=== PATIENT | male | born 1950 | race Caucasian/White ===

== ENCOUNTER → 2018-05-07 | Outpatient (CLI) | payer MEDICARE, OTHER ==
[~2018-05-07] VITALS: Ht 170.2 cm; Wt 100.7 kg
[~2018-05-07] MED LIST: CATHETER FLUSH 10 ML SYR IV PRN; REGADENOSON 0.4 MG/5 ML SYR (LEXISCAN) IV ONE
[2018-05-07 09:23] VITALS: BP 143/80
--- NOTE | 2018-05-07 14:32 | STRESS TEST ---
DATE OF SERVICE: 05/07/2018 RESTING AND POST REGADENOSON TECHNETIUM-99M TETROFOSMIN SPECT CT IMAGING ORDERING PHYSICIAN: Carolyn Galo APRN. PRIMARY CARE PHYSICIAN: Dr. Villar. CLINICAL DIAGNOSES: Premature ventricular contractions, hypertension and tobacco use. Baseline images were carried out after injection of 10.17 mCi of technetium-99m Tetrofosmin. This was followed by 0.4 of mg Regadenoson and 30.4 mCi of technetium-99m Tetrofosmin for stress imaging. The electrocardiogram showed sinus rhythm at baseline. Isolated premature ventricular contractions were seen during the study. The electrocardiogram did not change significantly with the Regadenoson infusion. Review of images at rest and following stress does not indicate any significant perfusion defects consistent with significant myocardial ischemia or infarction. Gated images show normal global left ventricular systolic function and normal regional wall motion. Left ventricular ejection fraction is calculated to be 62%. Left ventricular end diastolic volume is 70 mL. TID is absent (1.08). CONCLUSIONS: 1. No evidence of any significant myocardial ischemia or infarction on this study. 2. Normal regional wall motion. 3. Normal global left ventricular systolic function with a calculated ejection fraction of 62%. Job ID: [id number] DocumentID: [id number] Dictated Date: 05/07/2018 14:19:36 Investment Recovery Technician Date: 05/07/2018 14:31:49 Dictated By: ADONIS ZAYAS MD, MA, FACP, FACC,
== END ==
LOC: CARD 07:44
PROVIDERS: ATTEND Nurse Practitioner Family
DX: I49.3 Ventricular premature depolarization (principal); I10 Essential (primary) hypertension; G47.39 Other sleep apnea; Z72.0 Tobacco use
CPT/HCPCS: 78452; 93017

== ENCOUNTER 2020-11-27 23:58 | Day surgery (SDC) | payer MEDICARE, OTHER ==
[~2020-11-27] VITALS: Ht 170 cm; Wt 98.0 kg
[2020-11-28] VITALS (25 sets, daily range): BP systolic 91–228; BP diastolic 60–135
[2020-11-28 01:59] LABS: BASOPHILS # (AUTO) 0.1 10^3/uL (0.0-0.1); BASOPHILS % (AUTO) 0 % (0-10); EOSINOPHILS % (AUTO) 0 % (0-10); HEMATOCRIT 56 % (40-54); LYMPHOCYTES # (AUTO) 0.9 10^3/uL (1.0-4.0); LYMPHOCYTES % (AUTO) 6 % (12-44); MEAN CORPUSCULAR HEMOGLOBIN 31 pg (25-34); MEAN CORPUSCULAR HGB CONC 34 g/dL (32-36); MEAN CORPUSCULAR VOLUME 92 fL (80-99); MEAN PLATELET VOLUME 9.1 fL (9.0-12.2); MONOCYTES # (AUTO) 1.3 10^3/uL (0.0-1.0); MONOCYTES % (AUTO) 8 % (0-12); NEUTROPHILS # (AUTO) 13.4 10^3/uL (1.8-7.8); NEUTROPHILS % (AUTO) 85 % (42-75); PLATELET COUNT 210 10^3/uL (130-400); WHITE BLOOD COUNT 15.7 10^3/uL (4.3-11.0)
[2020-11-28 02:04] LABS: BILIRUBIN,URINE NEGATIVE (NEGATIVE); CLARITY,URINE CLEAR; COLOR,URINE YELLOW; GLUCOSE, URINE (UA) NEGATIVE (NEGATIVE); KETONES,URINE 2+ (NEGATIVE); LEUKOCYTE ESTERASE ,URINE NEGATIVE (NEGATIVE); NITRITE,URINE NEGATIVE (NEGATIVE); PROTEIN,URINE NEGATIVE (NEGATIVE)
[2020-11-28] MEDS ORDERED: ONDANSETRON 4 MG/2 ML (SDV) Z0FRAN ONE ×3 (02:07→10:53)
[2020-11-28 02:11] LABS: BACTERIA,URINE NEGATIVE /HPF
[2020-11-28 02:11] LABS: ALBUMIN 3.9 GM/DL (3.2-4.5)
[2020-11-28 02:12] LABS: POTASSIUM 3.7 MMOL/L (3.6-5.0)
[2020-11-28 02:13] LABS: CALCIUM 9.6 MG/DL (8.5-10.1)
[2020-11-28 02:14] LABS: TOTAL PROTEIN 7.3 GM/DL (6.4-8.2)
[2020-11-28] MEDS ORDERED: ONDANSETRON 4 MG/2 ML (SDV) Z0FRAN IVP ONE (02:15)
[2020-11-28 02:16] LABS: BAND NEUTROPHILS 1 %; BILIRUBIN,TOTAL 1.3 MG/DL (0.1-1.0); LYMPHOCYTES % (MANUAL) 5 %; MONOCYTES % (MANUAL) 9 %; NEUTROPHILS % (MANUAL) 85 %; RBC MORPH NORMAL
[2020-11-28 02:17] LABS: CREATININE SERUM 0.91 MG/DL (0.60-1.30)
--- NOTE | 2020-11-28 02:28 | ED Abdominal Pain ---
General Chief Complaint: Abdominal/GI Problems Stated Complaint: SIDE PAINS / SOA Nursing Triage Note: Pt arrives via POV from home with c/o abd pain; 11/27/20. Pt reports one month ago he had sharp abd pain et bloating, pt states he took gas-x et eventually the pain went away. Pt states tonight he woke up from sleep with similiar pain, more present on the right side. Pt reports he still has his appendix et would like it checked. Source of Information: Patient, Family Exam Limitations: No Limitations History of Present Illness Date Seen by Provider: Nov 28, 2020 Time Seen by Provider: 01:15 Initial Comments Patient is a 70-year-old male who presents to the emergency department today w ith a chief complaint of right flank pain. Patient states that he had similar symptoms about a month ago with increased abdominal bloating. He states that he took some Gas-X and Pepcid and his symptoms went away. Patient states he woke up from sleep with symptoms again tonight, feeling bloated and nauseous. No radiation of the pain into the back or down into his groin. He has had previous cholecystectomy "years ago". His family member at the bedside states that he had a gallbladder "full of stones". Patient has not really taken anything for the pain this evening, Tylenol or ibuprofen. He denies any urinary complaints, no bowel complaints, no black or bloody stools. No blood in his urine. No previous history of kidney stones. Has a history of hypertension, did not take his blood pressure medications today. Laying flat seems to make the pain a little bit worse sitting forward makes the pain feel better. He did state that earlier in the evening he had discomfort in the left flank as well but again states that the majority of it is in the right side. All other review of systems reviewed and negative except as stated. Timing/Duration: 4-6 Hours Severity/Quality: Severe, Sharp Location: Flank (right flank) Radiation: No Radiation Activities at Onset: None Associated Symptoms: Nausea/Vomiting Allergies and Home Medications Allergies Coded Allergies: No Known Drug Allergies (Unverified , 05/07/18) Patient Home Medication List Home Medication List Reviewed: Yes Review of Systems Review of Systems Constitutional: see HPI EENTM: No Symptoms Reported Respiratory: No Symptoms Reported Cardiovascular: No Symptoms Reported Gastrointestinal: Abdomen Distended, Abdominal Pain, Nausea Genitourinary: No Symptoms Reported Musculoskeletal: no symptoms reported Skin: no symptoms reported Psychiatric/Neurological: No Symptoms Reported Endocrine: No Symptoms Reported All Other Systems Reviewed Negative Unless Noted: Yes Past Chgshoa-Rhlokl-Dwenhm Hx Patient Social History Tobacco Use?: No Smoking Status: Former Smoker Use of E-Cig and/or Vaping dev: No Substance use?: No Alcohol Use?: No Pt feels they are or have been: No Immunizations Up To Date COVID19 Vaccine Cake Wrapper: Moderna Physical Exam Vital Signs Vital Signs - First Documented 11/28/20 00:08 Temp 36.7 Pulse 120 Resp 18 B/P (MAP) 180/112 (134) Pulse Ox 96 O2 Delivery Room Air Capillary Refill : Less Than 3 Seconds Height/Weight/BMI Height: 5'7.00" Weight: 222lbs. 0.0oz. 100.415243tg; 34.8 BMI Method: General Appearance: WD/WN, no apparent distress HEENT: PERRL/EOMI Neck: normal inspection Respiratory: lungs clear, normal breath sounds, no respiratory distress, no accessory muscle use Cardiovascular: regular rate, rhythm, no murmur Gastrointestinal: soft, other (protuberant and soft. no pulsatile masses felt. no hepatomegaly; tender to palpation over the right flank, equivoval caputo's; no overlying rashes. most tender over a scar resembling a port scar from previous cholecytectomy; normal bowel sounds.) Extremities: normal range of motion, non-tender, normal inspection Back: no CVA tenderness Neurologic/Psychiatric: alert, normal mood/affect, oriented x 3 Skin: normal color, warm/dry Progress/Results/Core Measures Results/Orders Lab Results Laboratory Tests Test 11/28/20 01:53 11/28/20 01:55 Range/Units White Blood Count 15.7 H 4.3-11.0 10^3/uL Red Blood Count 6.14 H 4.30-5.52 10^6/uL Hemoglobin 19.0 H 13.3-17.7 g/dL Hematocrit 56 H 40-54 % Mean Corpuscular Volume 92 80-99 fL Mean Corpuscular Hemoglobin 31 25-34 pg Mean Corpuscular Hemoglobin Concent 34 32-36 g/dL Red Cell Distribution Width 12.7 10.0-14.5 % Platelet Count 210 130-400 10^3/uL Mean Platelet Volume 9.1 9.0-12.2 fL Immature Granulocyte % (Auto) 0 % Neutrophils (%) (Auto) 85 H 42-75 % Lymphocytes (%) (Auto) 6 L 12-44 % Monocytes (%) (Auto) 8 0-12 % Eosinophils (%) (Auto) 0 0-10 % Basophils (%) (Auto) 0 0-10 % Neutrophils # (Auto) 13.4 H 1.8-7.8 10^3/uL Lymphocytes # (Auto) 0.9 L 1.0-4.0 10^3/uL Monocytes # (Auto) 1.3 H 0.0-1.0 10^3/uL Eosinophils # (Auto) 0.0 0.0-0.3 10^3/uL Basophils # (Auto) 0.1 0.0-0.1 10^3/uL Immature Granulocyte # (Auto) 0.1 0.0-0.1 10^3/uL Neutrophils % (Manual) 85 % Lymphocytes % (Manual) 5 % Monocytes % (Manual) 9 % Band Neutrophils 1 % Blood Morphology Comment NORMAL Sodium Level 138 135-145 MMOL/L Potassium Level 3.7 3.6-5.0 MMOL/L Chloride Level 100 98-107 MMOL/L Carbon Dioxide Level 25 21-32 MMOL/L Anion Gap 13 5-14 MMOL/L Blood Urea Nitrogen 10 7-18 MG/DL Creatinine 0.91 0.60-1.30 MG/DL Estimat Glomerular Filtration Rate 82 BUN/Creatinine Ratio 11 Glucose Level 128 H 70-105 MG/DL Calcium Level 9.6 8.5-10.1 MG/DL Corrected Calcium 9.7 8.5-10.1 MG/DL Total Bilirubin 1.3 H 0.1-1.0 MG/DL Aspartate Amino Transf (AST/SGOT) 16 5-34 U/L Alanine Aminotransferase (ALT/SGPT) 21 0-55 U/L Alkaline Phosphatase 99 40-136 U/L Total Protein 7.3 6.4-8.2 GM/DL Albumin 3.9 3.2-4.5 GM/DL Lipase 31 8-78 U/L Urine Color YELLOW Urine Clarity CLEAR Urine pH 6.0 5-9 Urine Specific [place] >=1.030 1.016-1.022 Urine Protein NEGATIVE NEGATIVE Urine Glucose (UA) NEGATIVE NEGATIVE Urine Ketones 2+ H NEGATIVE Urine Nitrite NEGATIVE NEGATIVE Urine Bilirubin NEGATIVE NEGATIVE Urine Urobilinogen 2.0 < = 1.0 MG/DL Urine Leukocyte Esterase NEGATIVE NEGATIVE Urine RBC (Auto) TRACE-I H NEGATIVE Urine RBC 2-5 H /HPF Urine WBC NONE /HPF Urine Squamous Epithelial Cells 2-5 /HPF Urine Crystals NONE /LPF Urine Bacteria NEGATIVE /HPF Urine Casts NONE /LPF Urine Mucus LARGE H /LPF Urine Culture Indicated NO My Orders Orders - NESTOR CERDA MD Ed Iv/Invasive Line Start (11/28/20 01:25) Cbc With Automated Diff (11/28/20 01:25) Comprehensive Metabolic Panel (11/28/20 01:25) Lipase (11/28/20 01:25) Ua Culture If Indicated (11/28/20 01:25) Manual Differential (11/28/20 01:53) Ondansetron Injection (Zofran Injectio (11/28/20 02:15) Ondansetron Injection (Zofran Injectio (11/28/20 02:07) Ct Abdomen/Pelvis W (11/28/20 02:21) Ns Iv 1000 Ml (Sodium Chloride 0.9%) (11/28/20 02:30) Dicyclomine Injection (Bentyl Injection) (11/28/20 02:29) Iohexol Injection (Omnipaque 350 Mg/Ml 1 (11/28/20 03:00) Ns (Ivpb) (Sodium Chloride 0.9% Ivpb Bag (11/28/20 03:00) Fentanyl Inj (Sublimaze Injection) (11/28/20 05:30) Ns Iv 1000 Ml (Sodium Chloride 0.9%) (11/28/20 05:30) Medications Given in ED Current Medications Medications Dose Ordered Sig/Chantale Route Start Time Stop Time Status Last Admin Dose Admin Fentanyl Citrate 50 mcg ONCE ONCE IVP 11/28/20 05:30 11/28/20 05:31 DC 11/28/20 05:37 50 MCG Iohexol 100 ml ONCE ONCE IV 11/28/20 03:00 11/28/20 03:09 DC 11/28/20 02:53 100 ML Ondansetron HCl 4 mg ONCE ONCE IVP 11/28/20 02:15 11/28/20 02:16 DC 11/28/20 02:10 4 MG Sodium Chloride 80 ml ONCE ONCE IV 11/28/20 03:00 11/28/20 03:09 DC 11/28/20 02:53 80 ML Vital Signs/I&O 11/28/20 00:08 Temp 36.7 Pulse 120 Resp 18 B/P (MAP) 180/112 (134) Pulse Ox 96 O2 Delivery Room Air Blood Pressure Mean: 134 Progress Progress Note : Time: 05:12 Progress Note significant delay in CT reads per radiology secondary to lots of trauma films being needed read at other facility. Patient and updated. Diagnostic Imaging Diagonstic Imaging: CT Plain Films/CT/US/NM/MRI: abdomen Comments Discussed with the radiologist at this time - "acute retrocecal appendicitis" Time of Consult: 05:19 Reviewed: Discussed w/Radiologist Departure Communication (Admissions) Time/Spoke to Admitting Phy: 05:[address] Dubon. Would like IV fluids, pain medicine nausea medicine as well as Cipro/Flagyl. Will operate around 10 AM this morning. form building supervisor notified. Impression Primary Impression: Abdominal pain Qualified Codes: R10.9 - Unspecified abdominal pain Additional Impression: Acute appendicitis Qualified Codes: K35.30 - Acute appendicitis with localized peritonitis, without perforation or gangrene Disposition: ADMITTED INPATIENT Condition: Stable Admissions Decision to Admit Reason: Admit from ER (General) Decision to Admit/Date: Nov 28, 2020 Time/Decision to Admit Time: 05:21 Departure-Patient Inst. Referrals: LIANE HANNON MD (PCP/Family) Primary Care Physician Copy Copies To 1: LIANE HANNON MD, KATHRYN M MD Nov 28, 2020 02:28
[2020-11-28] MEDS ORDERED: DICYCLOMINE 10 MG/ML (BENTYL) 2 ML AMP IM STA (02:29)
[2020-11-28] MEDS ORDERED: NS IV 1000 ML 1,000 ML IV SCH ×3 (02:30→06:30)
[2020-11-28] MEDS ORDERED: IOHEXOL 350 MG/ML 100 ML (OMNIPAQUE 350) VIAL IV ONE (03:00)
[2020-11-28] MEDS ORDERED: NS 100 ML (IVPB) BAG IV ONE (03:00)
[2020-11-28] MEDS ORDERED: fentaNYL INJ 100 MCG/2 ML AMP IVP ONE ×2 (05:30→10:15)
[2020-11-28] MEDS ORDERED: fentaNYL INJ 100 MCG/2 ML AMP IV PRN (06:30)
[2020-11-28] MEDS ORDERED: ONDANSETRON 4 MG/2 ML (SDV) Z0FRAN IV PRN (06:30)
--- NOTE | 2020-11-28 06:56 | Diagnostic Imaging Report ---
PROCEDURE: CT abdomen and pelvis with contrast. TECHNIQUE: Multiple contiguous axial images were obtained through the abdomen and pelvis after administration of intravenous contrast. Auto Exposure Controls were utilized during the CT exam to meet ALARA standards for radiation dose reduction. All CT scans use one or more of the following dose optimizing techniques: automated exposure control, MA and/or KvP adjustment based on patient size and exam type or iterative reconstruction. INDICATION: Right flank pain. Leukocytosis. Nausea. COMPARISON: None. FINDINGS: Dilated thick-walled appendix measuring up to 1.3 cm with adjacent inflammatory change consistent with acute appendicitis. No evidence of abscess formation or perforation. No evidence of bowel obstruction. The lung bases are clear. Simple appearing cysts in the kidney. Cholecystectomy. The pancreas, adrenals, kidneys, collecting systems and bladder are negative. Calcified granulomas in the spleen. No lymphadenopathy. Grade 1 anterolisthesis of L5 on S1 with chronic bilateral L5 pars defects. No acute osseous findings. IMPRESSION: CT findings consistent with acute uncomplicated appendicitis. Dictated by: Dictated on workstation # [id number]
[2020-11-28] MEDS ORDERED: RT-ALBUTEROL SULF 2.5 MG/3 ML PRE-MIX VIAL INH PRN (08:15)
[2020-11-28] MEDS: metroNIDAZOLE 500 MG/100 ML IVPB (PRE-MIX) IV SCH ×2 (08:33→20:36)
[2020-11-28] MEDS ORDERED: LIDOCAINE/EPI 1%-1:100,000 (XYLOCAINE) 20ML ONE (09:34)
--- NOTE | 2020-11-28 09:36 | Discharge Inst-Surgical ---
D/C Lap Instructions-MINERVA New, Converted, or Re-Newed RX: RX on Chart Follow Up Appt in 2 weeks Activity as tolerated No driving for 24 hours No driving while on pain medications Incentive Spirometry use every 2 hours while awake Regular Diet Symptoms to Report: Fever over 101 degree F, Nausea/Vomiting Infection Signs and Symptoms to report: Increased redness, Foul odor of wound, Increased drainage Bathing instructions: May shower Operative Area Clean/Dry; Keep incision clean/dry If any problems/questions: Contact your physician or go to Emergency Room ANDREW PALMA MD Nov 28, 2020 09:36
--- NOTE | 2020-11-28 09:37 | Progress Note-Pre Operative ---
Pre-Operative Progress Note H&P Reviewed The H&P was reviewed, patient examined and no changes noted. Date Seen by Provider: Nov 28, 2020 Time Seen by Provider: 09:00 Date H&P Reviewed: Nov 28, 2020 Time H&P Reviewed: 09:00 Pre-Operative Diagnosis: acute appendicitis ANDREW PALMA MD Nov 28, 2020 09:37
[2020-11-28] MEDS: LACTATED RINGERS 1,000 ML IV PRN ×3 (09:45→13:24)
[2020-11-28] MEDS ORDERED: fentaNYL INJ 100 MCG/2 ML AMP ONE (09:48)
[2020-11-28] MEDS: CIPROFLOXACIN 400 MG/D5W 200 ML (PRE-MIX) IV SCH ×2 (10:00→20:36)
[2020-11-28] MEDS ORDERED: morphine INJ 10 MG/ML 1ML (SYR OR VIAL) ONE (10:05)
[2020-11-28] MEDS ORDERED: HYDROmorphone 2 MG/ML VIAL (DILAUDID) ONE (10:05)
--- NOTE | 2020-11-28 10:13 | HISTORY AND PHYSICAL ---
DATE OF SERVICE: ATTENDING PRIMARY CARE PHYSICIAN: Ирина Villar MD. HISTORY OF PRESENT ILLNESS: The patient is a 70-year-old male, who presented to the Emergency Department with right flank pain. He states that he did have a similar episode with abdominal distention approximately one month ago and did take antacids and his symptoms relieved. He states that this pain was significantly worse, and the pain was also more localized towards the right lower abdominal quadrant. A CT scan was performed, which did show inflammation and dilatation of the appendix consistent with an appendicitis. He does not report any nausea nor vomiting as well as no diarrhea. PAST MEDICAL HISTORY: None. PAST SURGICAL HISTORY: Laparoscopic cholecystectomy. ALLERGIES: No known drug allergies. MEDICATIONS: None known. SOCIAL HISTORY: Previous smoker, negative alcohol. FAMILY HISTORY: Noncontributory. VITAL SIGNS: Temperature 37.4, blood pressure 140/89, pulse 109, respirations 22, pulse oximetry 90% on room air. REVIEW OF SYSTEMS: This is a well-nourished male currently in no acute distress. He is not experiencing any shortness of breath or difficulty breathing. No chest pain, palpitations, diaphoresis. Abdominal bloating. No nausea, vomiting. No diarrhea, constipation, no red blood per rectum, no dark tarry stools. No fever, chills. No recent inadvertent weight loss. All other review of systems negative. PHYSICAL EXAMINATION: CHEST: Clear. Good breath sounds bilaterally. HEART: Regular, no murmurs. EXTREMITIES: No lower extremity edema, negative Homans sign. HEENT: No scleral icterus. NECK: No cervical lymphadenopathy. ABDOMEN: Soft, nondistended. There is pain in the right lower abdominal quadrant at McBurney's point with voluntary guarding, no rebound. SKIN: Warm, dry. LABORATORY DATA: WBC 15.7, hemoglobin 19.0, hematocrit 56, platelets 210. BUN 10, creatinine 0.91. ASSESSMENT AND PLAN: A 70-year-old male with noncomplicated appendicitis. The natural history of this disease process was explained to the patient as well as the risks and benefits of surgery and he is in full understanding of this and would like to proceed with a diagnostic laparoscopy as well as a laparoscopic appendectomy. Job ID: [id number] DocumentID: [id number] Dictated Date: 11/28/2020 09:35:02 Montessori Toddler Teacher Date: 11/28/2020 10:12:11 Dictated By: ANDREW PALMA MD
[2020-11-28] MEDS ORDERED: morphine INJ 10 MG/ML 1ML (SYR OR VIAL) IVP ONE (10:15)
[2020-11-28] MEDS ORDERED: ONDANSETRON 4 MG/2 ML (SDV) Z0FRAN IVP PRN ×2 (10:15→12:45)
[2020-11-28] MEDS ORDERED: meTOprolol 5 MG/5 ML (LOPRESSOR) VIAL ONE (10:37)
[2020-11-28] MEDS ORDERED: proPOfol 200 MG/20 ML (DIPRIVAN) VIAL IV ONE (10:53)
[2020-11-28] MEDS ORDERED: ROCURONIUM 10 MG/ML 5 ML SYRINGE IV ONE (10:53)
[2020-11-28] MEDS ORDERED: LIDOCAINE PF 2% 5 ML (XYLOCAINE) VIAL ONE (10:53)
[2020-11-28] MEDS ORDERED: NEOSTIGMINE 3 MG/3 ML VIAL ONE (12:00)
[2020-11-28] MEDS ORDERED: GLYCOPYRROLATE 0.2 MG/ML (ROBINUL) 2 ML VIAL ONE (12:00)
--- NOTE | 2020-11-28 12:05 | Progress Note-Post Operative ---
Post-Operative Progess Note Surgeon (s)/It Training Specialist (s) Surgeon ANDREW PALMA MD It Training Specialist: ezequiel gunderson LABOR MEDIATOR Pre-Operative Diagnosis acute appendicitis Post-Operative Diagnosis same, umbilical hernia Procedure & Operative Findings Date of Procedure 11/28/20 Procedure Performed/Findings laparoscopic appendectomy, open umbilical hernia repair Anesthesia Type get Estimated Blood Loss Estimated blood loss (mL): minimal Specimens/Packing Specimens Removed appendix ANDREW PALMA MD Nov 28, 2020 12:05
[2020-11-28] MEDS ORDERED: SEVOFLURANE (ULTANE) 15 ML INHAL SOLN ONE (12:08)
[2020-11-28] MEDS: morphine INJ 10 MG/ML 1ML (SYR OR VIAL) IVP ONE ×2 (12:44→13:56)
[2020-11-28] MEDS ORDERED: MEPERIDINE (DEMEROL) INJ 50 MG/ML IVP ONE (12:45)
[2020-11-28] MEDS ORDERED: RT-ALBUTEROL SULF 2.5 MG/3 ML PRE-MIX VIAL INH ONE (12:45)
--- NOTE | 2020-11-28 12:55 | OPERATIVE REPORT ---
DATE OF SERVICE: 11/28/2020 ATTENDING PRIMARY CARE PHYSICIAN: Ирина Villar MD PREOPERATIVE DIAGNOSIS: Acute appendicitis. POSTOPERATIVE DIAGNOSES: 1. Retrocecal acute on chronic appendicitis. 2. Incarcerated umbilical hernia. PROCEDURE: Laparoscopic appendectomy, open incarcerated umbilical hernia repair primarily. SURGEON: Cheryl Dubon MD. PICKLE PROCESSOR: Sridhar Emmanuel APRN. ANESTHESIA: General endotracheal. ESTIMATED BLOOD LOSS: Minimal. FINDINGS: Retrocecal appendix with the appendix attached to the right lobe of the liver and significant chronic surrounding inflammatory tissue. Umbilical hernia with omentum with the hernia sac. DISPOSITION: The patient tolerated the procedure well. INDICATIONS: The patient is a 70-year-old male, who presented to the Emergency Department with right flank pain. He reports that he had similar episodes one month ago and did take antacids with some symptomatic relief. He states that the pain reoccurred and then worsened over time and also became localized more towards the lower aspect of the right side of the abdomen. A CT scan was performed, which did show inflammation and dilatation of the appendix, which was retrocecal. He did not report any nausea, no vomiting. He also did not report any fever or chills. DESCRIPTION OF PROCEDURE: The patient was brought to the operating room, laid supine on the table. After adequate IV pain and sedative medications and general endotracheal intubation, the abdomen was prepped and draped in standard surgical fashion. A 0.5% Marcaine with epinephrine was then used to anesthetize the overlying skin in the left upper abdominal quadrant and a transverse skin incision made using a 15 blade. An 0 silk suture was applied to the medial aspect incision for retraction and a Veress needle inserted with a low opening pressure of 0 mmHg and the abdomen was insufflated to 15 mmHg. Veress needle removed, and a 5 mm XL trocar placed followed by a 5 mm 45-degree angle laparoscope. An umbilical hernia was identified with omentum within the hernia sac. We then proceeded to place an infraumbilical 5 mm port and the omentum was bluntly dissected off of the hernia sac with visualization of good hemostasis. Through the umbilical hernia, a 10 mm port was placed under direct visualization. The patient was then placed in a Trendelenburg position as well as plane right side up, left side down. There were chronic inflammatory changes as well as an appendix that was retrocecal with the tip scar to the right lobe of the liver. This appeared to be chronic inflammation. We then proceeded to place a right upper abdominal quadrant 5 mm port. We then proceeded with meticulous dissection of the appendix to the cecal base. The appendix was then stapled and transected at the cecal base using a [place] 45 mm stapler with a 2.5 mm thickness load. The mesoappendix was then stapled and transected with the same stapler with a 2.0 mm thickness reload with visualization of good hemostasis. The area was then copiously irrigated and suctioned out. A 19-Al[place]ian Royce-Puente drain was then placed into the right lateral abdomen and brought out the left upper abdominal quadrant port site and sutured to the skin using 3-0 nylon suture. The abdomen was then desufflated and remaining ports removed. The umbilical hernia sac was then excised using electrocautery. The defect was small, approximately 1 cm in size and we proceeded with primary repair using interrupted 0 Prolene sutures closing the defect transversely. Good hemostasis was observed. All skin incisions were closed using 4-0 Monocryl running subcuticular sutures. Wounds were then cleaned and covered with Dermabond. The patient tolerated the procedure well. We will start IV normal pain medication as well as a clear liquid diet. Once he is tolerating clears, has good pain control with oral pain medications, ambulating well, we will discharge him home. Job ID: [id number] DocumentID: [id number] Dictated Date: 11/28/2020 12:10:59 Sales Counselor Date: 11/28/2020 12:55:21 Dictated By: CHERYL DUBON MD [facility]
[2020-11-28] MEDS ORDERED: LISI40TA9 PO (13:50)
[2020-11-28] MEDS ORDERED: AMLO-250 PO (13:50)
[2020-11-28] MEDS ORDERED: MTP100TCR PO (13:50)
[2020-11-28] MEDS ORDERED: NS IV 500 ML 500 ML ONE (13:54)
[2020-11-28] MEDS ORDERED: NS IV 1000 ML 500 ML IV SCH (14:00)
[2020-11-28 14:24] LABS: BASOPHILS % (AUTO) 0 % (0-10); EOSINOPHILS % (AUTO) 0 % (0-10); HEMATOCRIT 51 % (40-54); LYMPHOCYTES # (AUTO) 0.5 10^3/uL (1.0-4.0); LYMPHOCYTES % (AUTO) 3 % (12-44); MEAN CORPUSCULAR HEMOGLOBIN 31 pg (25-34); MEAN CORPUSCULAR HGB CONC 34 g/dL (32-36); MEAN CORPUSCULAR VOLUME 94 fL (80-99); MEAN PLATELET VOLUME 9.1 fL (9.0-12.2); MONOCYTES # (AUTO) 1.6 10^3/uL (0.0-1.0); MONOCYTES % (AUTO) 9 % (0-12); NEUTROPHILS # (AUTO) 16.6 10^3/uL (1.8-7.8); NEUTROPHILS % (AUTO) 88 % (42-75); PLATELET COUNT 194 10^3/uL (130-400); WHITE BLOOD COUNT 18.8 10^3/uL (4.3-11.0)
[2020-11-28 14:28] LABS: ABG OXYGEN SATURATION 94 % (94-100); ABG PCO2 47 MMHG (35-45); ABG PO2 74 MMHG (79-93); ABG TCO2 24.7 MMOL/L (21.0-31.0); ALLENS TEST POSITIVE; INSPIRED O2 45; PATIENT TEMP 37.1; VENTILATOR NO
[2020-11-28 14:30] LABS: ABG PH 7.32 (7.37-7.43)
[2020-11-28 14:48] LABS: CALCIUM 8.5 MG/DL (8.5-10.1); CREATININE SERUM 1.15 MG/DL (0.60-1.30); MAGNESIUM 1.7 MG/DL (1.6-2.4); POTASSIUM 3.7 MMOL/L (3.6-5.0)
--- NOTE | 2020-11-28 15:31 | Tele-ICU Consult ---
Progress Note Tele ICU: S:70 yo man admitted post op for management in the ICU- Underwent laparoscopic a ppendectomy, complicated by attachment to R lobe of liver, had washout and drain RUQ and separate umbilical hernia repair. PMHx: COPD, CATHY on nocturnal CPAP, HTN - on metoprolol and lisinopril. O: Presents to ICU on BiPAP, somnolent, BP 92/73, ST 101 with unifocal PVCs , on BiPAP 12/6- 45% rate 10 with spO2 93%, generating TVs about 700 Ordered labs and ABGs on admit along with a bolus of NS 500mls. BP responded to 139/99, sats to 99% Lab results ABGs 7.32/ 47/74/23 Lactic acid 2.59 Na 136 K 3.7 CL 104 Bicarb 21 Gluc 158 BUN 11 Creat 1.15 Mg 1.7 CBC WBC 18,800 Hgb 17 plts 194,000 Labs were done prior to the fluid bolus A: (1)Post op laparoscopic appendectomy and umbilical hernia repair (2)Hypotension rel to sedation and hypovolemia- responded to fluid bolus (3) Ventricular ectopy likely rel to low K, Mg (4) Hypoventilation -rel to sedation and chronic CATHY P: IV LR 125 mls/hr, increase BiPAP rate to 14- remain on BiPAP overnight, replace K, Mg as per the ICU electrolyte replacement protocol, GIB prophylaxis with Pantoprazole, DVT prophylaxis with SCDs, Antibiotics Cipro and Flagyl as per Surgery orders, Pain mgmt as per Surgical orders, continue to monitor, AM labs ordered for AM, D/W bedside nursing. Focused Exam Lactate Level 11/28/20 14:18: Lactic Acid Level 2.59*H Height, Weight, BMI Height: 5'7.00" Weight: 222lbs. 0.0oz. 100.284370kp; 33.91 BMI Method: Lactic Acid Level Laboratory Tests Test 11/28/20 14:18 Lactic Acid Level 2.59 MMOL/L (0.50-2.00) *H ANIL SALEEM DO Nov 28, 2020 15:31
[2020-11-28] MEDS: LACTATED RINGERS 1,000 ML IV SCH ×2 (15:32→20:37)
[2020-11-28] MEDS: PANTOPRAZOLE 40 MG (PROTONIX) VIAL IV SCH (15:33)
[2020-11-28] MEDS: fentaNYL INJ 100 MCG/2 ML AMP IVP PRN ×2 (16:35→18:33)
[2020-11-28] MEDS ORDERED: MAGNESIUM 1 GM/100 ML IVPB 100 ML IV ONE ×2 (17:00→18:00)
[2020-11-28] MEDS ORDERED: ACETAMINOPHEN 650 MG SUPP (TYLENOL) PR ONE (18:45)
[2020-11-28] MEDS: HYDROcodone/APAP 7.5 MG/325 MG (LORTAB, LORCET PLUS) TABLET PO PRN (21:42)
[2020-11-29] VITALS (20 sets, daily range): BP systolic 108–160; BP diastolic 69–110
[2020-11-29] MEDS: HYDROcodone/APAP 7.5 MG/325 MG (LORTAB, LORCET PLUS) TABLET PO PRN ×3 (03:45→13:25)
[2020-11-29 04:25] LABS: BASOPHILS # (AUTO) 0.1 10^3/uL (0.0-0.1); BASOPHILS % (AUTO) 0 % (0-10); EOSINOPHILS % (AUTO) 0 % (0-10); HEMATOCRIT 51 % (40-54); HEMOGLOBIN 16.9 g/dL (13.3-17.7); LYMPHOCYTES # (AUTO) 0.6 10^3/uL (1.0-4.0); LYMPHOCYTES % (AUTO) 5 % (12-44); MEAN CORPUSCULAR HEMOGLOBIN 31 pg (25-34); MEAN CORPUSCULAR HGB CONC 33 g/dL (32-36); MEAN CORPUSCULAR VOLUME 95 fL (80-99); MEAN PLATELET VOLUME 9.5 fL (9.0-12.2); MONOCYTES # (AUTO) 1.3 10^3/uL (0.0-1.0); MONOCYTES % (AUTO) 10 % (0-12); NEUTROPHILS # (AUTO) 11.1 10^3/uL (1.8-7.8); NEUTROPHILS % (AUTO) 85 % (42-75); PLATELET COUNT 151 10^3/uL (130-400); WHITE BLOOD COUNT 13.2 10^3/uL (4.3-11.0)
[2020-11-29 04:46] LABS: ALBUMIN 3.3 GM/DL (3.2-4.5); POTASSIUM 3.8 MMOL/L (3.6-5.0)
[2020-11-29 04:47] LABS: CALCIUM 8.9 MG/DL (8.5-10.1)
[2020-11-29 04:49] LABS: TOTAL PROTEIN 6.2 GM/DL (6.4-8.2)
[2020-11-29 04:50] LABS: BILIRUBIN,TOTAL 2.1 MG/DL (0.1-1.0)
[2020-11-29 04:52] LABS: CREATININE SERUM 1.01 MG/DL (0.60-1.30); PHOSPHORUS 2.8 MG/DL (2.3-4.7)
[2020-11-29] MEDS ORDERED: MAGNESIUM 1 GM/100 ML IVPB 100 ML IV SCH (06:00)
[2020-11-29] MEDS ORDERED: POTASSIUM CL 10MEQ/50ML IVPB 50 ML IV SCH (06:00)
[2020-11-29] MEDS ORDERED: KCL 20 MEQ TAB (K-DUR) PO SCH (06:00)
[2020-11-29] MEDS ORDERED: SUGAMMADEX 500 MG/5 ML VIAL (BRIDION) IV ONE (07:03)
--- NOTE | 2020-11-29 07:29 | Anesthesia-General Post-Op ---
General Patient Condition Mental Status/LOC: Same as Preop Cardiovascular: Satisfactory Nausea/Vomiting: Absent Respiratory: Satisfactory Pain: Controlled Complications: Absent Post Op Complications Complications None Follow Up Care/Instructions Patient Instructions None needed. Anesthesia/Patient Condition Patient Condition Patient is doing well, no complaints, stable vital signs, no apparent adverse anesthesia problems. No complications reported per nursing. DALIA LE CRNA Nov 29, 2020 07:29
[2020-11-29] MEDS: CIPROFLOXACIN 400 MG/D5W 200 ML (PRE-MIX) IV SCH ×2 (08:28→20:06)
[2020-11-29] MEDS: metroNIDAZOLE 500 MG/100 ML IVPB (PRE-MIX) IV SCH ×2 (08:29→20:06)
[2020-11-29] MEDS: PANTOPRAZOLE 40 MG (PROTONIX) VIAL IV SCH (08:29)
[2020-11-29] MEDS ORDERED: meTOprolol SUCCINATE 100 MG (TOPROL XL) TAB PO NR (09:01)
[2020-11-29] MEDS ORDERED: CIME200T14 PO (09:06)
[2020-11-29] MEDS ORDERED: ASPI-1238 PO (09:06)
--- NOTE | 2020-11-29 09:06 | Tele-ICU Progress Note ---
Subjective Date Seen by a Provider: Nov 29, 2020 Time Seen by a Provider: 09:05 Sepsis Event Evaluation Height, Weight, BMI Height: 5'7.00" Weight: 222lbs. 0.0oz. 100.427212cj; 33.91 BMI Method: Focused Exam Lactate Level 11/28/20 14:18: Lactic Acid Level 2.59*H 11/28/20 16:03: Lactic Acid Level 2.74*H 11/29/20 04:02: Lactic Acid Level 1.59 Exam Exam Patient acknowledged, consented, and participated in this virtual visit which was conducted using real time audio/video Vital Signs Date Time Temp Pulse Resp B/P (MAP) Pulse Ox O2 Delivery O2 Flow Rate FiO2 11/29/20 08:25 98 Nasal Cannula 2.00 11/29/20 08:00 115 146/73 (97) 97 Nasal Cannula 2.00 11/29/20 07:50 96 Nasal Cannula 2.00 11/29/20 07:50 36.3 11/29/20 07:00 105 11/29/20 07:00 106 146/110 (122) 99 Nasal Cannula 2.00 11/29/20 06:00 105 155/101 (119) 98 Nasal Cannula 2.00 11/29/20 05:00 115 130/77 (94) 95 Nasal Cannula 2.00 11/29/20 04:00 112 158/86 (110) 96 Nasal Cannula 2.00 11/29/20 03:53 37.2 Nasal Cannula 2.00 11/29/20 03:00 114 26 146/87 (106) 98 Nasal Cannula 4.00 11/29/20 02:00 103 20 135/78 (97) 99 Nasal Cannula 4.00 11/29/20 01:00 90 16 119/69 (86) 99 Nasal Cannula 4.00 11/29/20 01:00 90 11/29/20 00:00 96 22 121/82 (95) 100 Nasal Cannula 4.00 11/28/20 23:22 37.7 Nasal Cannula 4.00 11/28/20 23:00 104 23 111/73 (86) 99 Nasal Cannula 4.00 11/28/20 22:12 Nasal Cannula 4.00 11/28/20 22:09 100 Nasal Cannula 4.00 11/28/20 22:00 101 23 140/88 (105) 100 Nasal Cannula 5.00 11/28/20 21:00 102 22 149/68 (95) 99 Nasal Cannula 5.00 11/28/20 20:58 37.3 Nasal Cannula 5.00 11/28/20 20:00 98 NIV Bilevel 45 11/28/20 20:00 100 19 134/92 (106) 100 NIV Bilevel 45.00 11/28/20 20:00 38.0 11/28/20 19:26 85 22 98 45.00 11/28/20 19:19 122 106/75 (85) 98 NIV Bilevel 45.00 11/28/20 19:05 138 11/28/20 19:03 122 103/71 (82) 98 NIV Bilevel 45.00 11/28/20 18:41 38.8 11/28/20 18:00 95 136/89 (105) 95 NIV Bilevel 45.00 11/28/20 17:00 90 134/85 (101) 92 NIV Bilevel 45.00 11/28/20 16:00 94 20 147/86 (106) 97 NIV Bilevel 45.00 11/28/20 15:28 85 22 98 45.00 11/28/20 15:00 84 20 139/99 (112) 100 NIV Bilevel 45.00 11/28/20 14:00 113 21 91/63 (72) 95 NIV Bilevel 45.00 11/28/20 13:40 NIV Bilevel 45 11/28/20 13:35 NIV Bilevel 45 11/28/20 13:35 37.6 20 119/60 (79) 96 NIV Bilevel 45 11/28/20 13:31 116 11/28/20 13:30 20 119/60 (79) 96 NIV Bilevel 45 11/28/20 13:30 37.1 11/28/20 13:25 NIV Bilevel 45 11/28/20 13:20 22 119/60 (79) 96 NIV Bilevel 45 11/28/20 13:10 24 122/66 (84) 95 NIV Bilevel 45 11/28/20 13:10 NIV Bilevel 45 11/28/20 13:04 111 28 97 45.00 11/28/20 13:00 30 114/82 (93) 96 NIV Bilevel 45 11/28/20 13:00 121 29 122/66 (84) 94 NIV Bilevel 45.00 11/28/20 12:55 90 OxyMask 8.00 11/28/20 12:55 NIV Bilevel 45 11/28/20 12:50 29 129/83 (98) 94 NIV Bilevel 45 11/28/20 12:40 44 175/135 (148) 88 NIV Bilevel 45 11/28/20 12:40 NIV Bilevel 45 11/28/20 12:35 OxyMask 10 11/28/20 12:30 46 228/120 (156) 86 OxyMask 10 11/28/20 12:22 37.9 38 221/115 (150) 84 OxyMask 10 11/28/20 12:22 OxyMask 10 I & O 11/29/20 07:00 Intake Total 3765 ml Output Total 660 ml Balance 3105 ml Height & Weight Height: 5'7.00" Weight: 222lbs. 0.0oz. 100.154975hw; 33.91 BMI Method: General Appearance: No Apparent Distress Capillary Refill: Less Than 3 Seconds Gastrointestinal: soft, other (protuberant and soft. no pulsatile masses felt. no hepatomegaly; tender to palpation over the right flank, equivoval caputo's; no overlying rashes. most tender over a scar resembling a port scar from previous cholecytectomy; normal bowel sounds.) Results Lab Laboratory Tests 11/28/20 01:53 11/28/20 14:18 11/29/20 04:02 Assessment/Plan Assessment/Plan (Tele-ICU Physician , Progress Note ) Available chart/ vitals / labs / Images reviewed Video assessment done using teleICU camera, rest of exam as per RN Discussed with RN , EXAM PER RN Events overnight : weaned off bipap FEBRILE I/O = pos 3L Drips: Pressors: , hemodynamically stable Consultants: Hospital course: 11/28- post Sx to ICU , on BIPAP . low BP , acidosis A/P 11/28- Appy - s/p lap appendectomy, complicated by attachment to R lobe of liver, had washout and drain RUQ and separate umbilical hernia repair - Cipro and Flagyl as per surgery orders,Cipro and Flagyl as per surgery orders, Acute resp failre - post op in face COPD and abd preocedure - NIPPV BiPAP 01/17- 45 % - weaned to NC 2 L - stop IVF , start IS Hypotension with hypovolemia - responsded to IVF COPD - reported , not on meds as per chart = to re-address - nebs prn for now Ventricular ectopy post op - lytes corrected - resolved - resume metoprolol Po CATHY - cont CPAP when sleeping HTN - stress test 2018 -, EF 60% , no ischemia - resuming beta blockers today , rest meds to resume little latter if stable vitals Lines : (Central Line Necessity Reviewed) River: OG: Nutrition: po Analgesia: Anxiety/ delirium VTE Prophylaxis: scd , lovenox when ok with Sx Stress Ulcer Prophylaxis: ppi Glycemic Control: Plans in collaboration with bedside consultants and IM MDs. Discussed with RN to reach out if any questions or concerns A total of _20 minutes of critical care time was devoted to this patient today, required to treat and/or prevent further deterioration of critical care condition ( as above) . LEANNE CONTRERAS MD Nov 29, 2020 09:06
[2020-11-29] MEDS: LACTATED RINGERS 1,000 ML IV SCH (10:26)
--- NOTE | 2020-11-29 17:53 | Progress Note ---
Subjective Date Seen by a Provider: Nov 29, 2020 Time Seen by a Provider: 17:30 Subjective/Events-last exam doing better. on 2L NC. pain better controlled. ambulating well. tolerating liquids. Focused Exam Lactate Level 11/28/20 14:18: Lactic Acid Level 2.59*H 11/28/20 16:03: Lactic Acid Level 2.74*H 11/29/20 04:02: Lactic Acid Level 1.59 Objective Exam Vital Signs Date Time Temp Pulse Resp B/P (MAP) Pulse Ox O2 Delivery O2 Flow Rate FiO2 11/29/20 17:45 36.3 11/29/20 16:00 89 20 140/78 (98) 96 Nasal Cannula 2.00 11/29/20 15:00 98 20 120/83 (95) 95 Nasal Cannula 2.00 11/29/20 14:07 Nasal Cannula 2.00 11/29/20 14:00 92 20 132/89 (103) 88 Room Air 11/29/20 13:00 94 35 130/71 (90) 91 Room Air 11/29/20 13:00 94 11/29/20 12:52 36.7 Room Air 11/29/20 12:00 99 12 126/74 (91) 93 Nasal Cannula 1.00 11/29/20 11:00 112 21 115/88 (97) 96 Nasal Cannula 1.00 11/29/20 10:00 123 20 108/74 (85) 99 Nasal Cannula 2.00 11/29/20 09:00 121 33 160/100 (120) 92 Nasal Cannula 2.00 11/29/20 08:25 98 Nasal Cannula 2.00 11/29/20 08:00 115 146/73 (97) 97 Nasal Cannula 2.00 11/29/20 07:50 96 Nasal Cannula 2.00 11/29/20 07:50 36.3 11/29/20 07:00 105 11/29/20 07:00 106 146/110 (122) 99 Nasal Cannula 2.00 11/29/20 06:00 105 155/101 (119) 98 Nasal Cannula 2.00 11/29/20 05:00 115 130/77 (94) 95 Nasal Cannula 2.00 11/29/20 04:00 112 158/86 (110) 96 Nasal Cannula 2.00 11/29/20 03:53 37.2 Nasal Cannula 2.00 11/29/20 03:00 114 26 146/87 (106) 98 Nasal Cannula 4.00 11/29/20 02:00 103 20 135/78 (97) 99 Nasal Cannula 4.00 11/29/20 01:00 90 16 119/69 (86) 99 Nasal Cannula 4.00 11/29/20 01:00 90 11/29/20 00:00 96 22 121/82 (95) 100 Nasal Cannula 4.00 11/28/20 23:22 37.7 Nasal Cannula 4.00 11/28/20 23:00 104 23 111/73 (86) 99 Nasal Cannula 4.00 11/28/20 22:12 Nasal Cannula 4.00 11/28/20 22:09 100 Nasal Cannula 4.00 11/28/20 22:00 101 23 140/88 (105) 100 Nasal Cannula 5.00 11/28/20 21:00 102 22 149/68 (95) 99 Nasal Cannula 5.00 11/28/20 20:58 37.3 Nasal Cannula 5.00 11/28/20 20:00 98 NIV Bilevel 45 11/28/20 20:00 100 19 134/92 (106) 100 NIV Bilevel 45.00 11/28/20 20:00 38.0 11/28/20 19:26 85 22 98 45.00 11/28/20 19:19 122 106/75 (85) 98 NIV Bilevel 45.00 11/28/20 19:05 138 11/28/20 19:03 122 103/71 (82) 98 NIV Bilevel 45.00 11/28/20 18:41 38.8 11/28/20 18:00 95 136/89 (105) 95 NIV Bilevel 45.00 I & O 11/29/20 07:00 Intake Total 4765 ml Output Total 660 ml Balance 4105 ml Capillary Refill : Less Than 3 SecondsLess Than 3 Seconds General Appearance: No Apparent Distress HEENT: PERRL/EOMI Neck: Full Range of Motion Respiratory: Chest Non Tender, Decreased Breath Sounds Cardiovascular: Regular Rate, Rhythm Gastrointestinal: soft, tenderness Extremity: Normal Capillary Refill Neurologic/Psychiatric: Alert, Oriented x3 Skin: Normal Color Lymphatic: No Adenopathy Results Lab Laboratory Tests 11/29/20 04:02: White Blood Count 13.2H, Red Blood Count 5.40, Hemoglobin 16.9, Hematocrit 51, Mean Corpuscular Volume 95, Mean Corpuscular Hemoglobin 31, Mean Corpuscular Hemoglobin Concent 33, Red Cell Distribution Width 13.5, Platelet Count 151, Mean Platelet Volume 9.5, Immature Granulocyte % (Auto) 0, Neutrophils (%) (Auto) 85H, Lymphocytes (%) (Auto) 5L, Monocytes (%) (Auto) 10, Eosinophils (%) (Auto) 0, Basophils (%) (Auto) 0, Neutrophils # (Auto) 11.1H, Lymphocytes # (Auto) 0.6L, Monocytes # (Auto) 1.3H, Eosinophils # (Auto) 0.0, Basophils # (Auto) 0.1, Immature Granulocyte # (Auto) 0.0, Sodium Level 135, Potassium Level 3.8, Chloride Level 102, Carbon Dioxide Level 22, Anion Gap 11, Blood Urea Nitrogen 14, Creatinine 1.01, Estimat Glomerular Filtration Rate 73, BUN/Creatinine Ratio 14, Glucose Level 103, Lactic Acid Level 1.59, Calcium Level 8.9, Corrected Calcium 9.5, Phosphorus Level 2.8, Magnesium Level 2.0, Total Bilirubin 2.1H, Aspartate Amino Transf (AST/SGOT) 20, Alanine Aminotransferase (ALT/SGPT) 21, Alkaline Phosphatase 75, Total Protein 6.2L, Albumin 3.3 Microbiology 11/28/20 MRSA Screen - Final, Complete MRSA not isolated Assessment/Plan Assessment/Plan Assess & Plan/Chief Complaint s/p lap appendectomy and umbilical hernia repair. significant COPD. IS and ambulation. transfer to floor. ANDREW PALMA MD Nov 29, 2020 17:53
[2020-11-30 00:04] VITALS: BP 166/90
[2020-11-30 03:14] VITALS: BP 152/82
[2020-11-30 05:07] LABS: POTASSIUM 3.6 MMOL/L (3.6-5.0)
[2020-11-30 05:08] LABS: CALCIUM 9.2 MG/DL (8.5-10.1)
[2020-11-30 05:13] LABS: CREATININE SERUM 0.83 MG/DL (0.60-1.30)
[2020-11-30 06:28] VITALS: BP 162/79
[2020-11-30 07:40] VITALS: BP 161/97
[2020-11-30] MEDS: CIPROFLOXACIN 400 MG/D5W 200 ML (PRE-MIX) IV SCH (08:18)
[2020-11-30] MEDS: metroNIDAZOLE 500 MG/100 ML IVPB (PRE-MIX) IV SCH (08:18)
[2020-11-30] MEDS: PANTOPRAZOLE 40 MG (PROTONIX) VIAL IV SCH (08:18)
[2020-11-30] MEDS ORDERED: PATIENT MAY USE OWN MEDS, ALL MC SCH (08:45)
[2020-11-30] MEDS ORDERED: ASPIRIN E.C. 81 MG (ECOTRIN) TAB PO SCH (09:00)
[2020-11-30] MEDS ORDERED: lisINopril 40 MG (PRINIVIL) TABLET PO SCH (09:00)
[2020-11-30] MEDS ORDERED: meTOprolol SUCCINATE 100 MG (TOPROL XL) TAB PO SCH (09:00)
[2020-11-30 11:44] VITALS: BP 124/83
[2020-11-30] MEDS ORDERED: PANT40TA2 PO (13:34)
[2020-11-30] MEDS ORDERED: HYDR-3817 PO (13:34)
[2020-11-30] MEDS ORDERED: ONDN4T PO (13:34)
--- NOTE | 2020-11-30 13:34 | Discharge Inst-Surgical ---
D/C Lap Instructions-MINERVA New, Converted, or Re-Newed RX: RX on Chart Follow Up Appt Friday 11/03. Activity as tolerated No driving for 24 hours No driving while on pain medications Incentive Spirometry use every 2 hours while awake Regular Diet Symptoms to Report: Fever over 101 degree F, Nausea/Vomiting Infection Signs and Symptoms to report: Increased redness, Foul odor of wound, Increased drainage Bathing instructions: May shower Operative Area Clean/Dry; Keep incision clean/dry If any problems/questions: Contact your physician or go to Emergency Room ANDREW PALMA MD Nov 30, 2020 13:34
[2020-11-30 14:15] VITALS: BP 124/83
[2020-11-30] MEDS ORDERED: amLODIPine 5 MG (NORVASC) TAB PO SCH (21:00)
== END 2020-11-30 14:45 | disposition home or self-care (01) ==
LOC: EDUNIT# 23:58 → ER 23:58 → 4TH 23:59 → ER 23:59 → SDC 23:59 → UNDOADMOB 11-28 05:25 → 4TH 11-28 05:25 → ER 11-28 05:45 → ICU 11-28 13:32 → 4TH 11-28 13:32 → ICU 11-28 13:32 → 4TH 11-30 06:14 → ICU 11-30 06:14 → UNDODISOB 11-30 14:45 → SDC 11-30 14:45
PROVIDERS: ATTEND Surgery
DX: K35.80 Unspecified acute appendicitis (principal); K42.0 Umbilical hernia with obstruction, without gangrene; I10 Essential (primary) hypertension; G47.33 Obstructive sleep apnea (adult) (pediatric); Z99.89 Dependence on other enabling machines and devices; Z87.891 Personal history of nicotine dependence; Z79.82 Long term (current) use of aspirin; Z79.899 Other long term (current) drug therapy
CPT/HCPCS: 36415; 74177; 80048; 80053; 81000; 82805; 83605; 83690; 83735; 84100; 85007; 85025; 85027; 87081; 88304; 94640; 94660; 94664; 94760; 96372; 96374; 96375

== ENCOUNTER → 2021-07-25 | Outpatient (CLI) | payer MEDICARE, OTHER ==
[~2021-07-25] MED LIST changes: +AMLO-250 PO; +ASPI-1238 PO; -CATHETER FLUSH 10 ML SYR IV PRN; +CIME200T90 PO; +HYDR-3817 PO; +LISI40TA9 PO; +MTP100TCR PO; +ONDN4T PO; +PANT40TA2 PO; -REGADENOSON 0.4 MG/5 ML SYR (LEXISCAN) IV ONE
--- NOTE | 2021-07-25 11:01 | Diagnostic Imaging Report ---
PROCEDURE: CT abdomen and pelvis without contrast. TECHNIQUE: Multiple contiguous axial images were obtained through the abdomen and pelvis without the use of intravenous contrast. Auto Exposure Controls were utilized during the CT exam to meet ALARA standards for radiation dose reduction. INDICATION: Sharp left lower quadrant abdominal pain. Correlation is made with prior CT from 11/28/2020. Lung bases are clear. Liver again demonstrates circumscribed low-attenuation lesions suggestive of cysts. Gallbladder surgically absent. There is no biliary ductal dilatation. Pancreas and spleen are unremarkable. No adrenal mass is detected. There is a tiny nonobstructing calculus lower pole right kidney. No hydronephrosis is identified. Aorta is heavily calcified but nonaneurysmal. Bowel loops are normal caliber. There is no obstruction. No free fluid or fluid collection is seen. The bladder is decompressed. Prostate is unremarkable. No inflammatory changes are identified. Bony structures are nonacute. 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 IMPRESSION: 1. Hepatic cysts. 2. Nonobstructing right renal calculus. 3. The study is otherwise unremarkable. No acute feature is detected. Dictated by: Dictated on workstation # [id number]
== END ==
LOC: RAD 10:15
PROVIDERS: ATTEND Nurse Practitioner Family
DX: K76.89 Other specified diseases of liver (principal); N20.0 Calculus of kidney
CPT/HCPCS: 74176

== ENCOUNTER 2021-11-05 09:45 | Emergency (ER) | payer MEDICARE, OTHER ==
[~2021-11-05] VITALS: Ht 172 cm; Wt 98.0 kg
--- NOTE | 2021-11-05 10:48 | ED General ---
General Chief Complaint: COVID19 Suspect/Confirmed Stated Complaint: HOME COVID TEST +/CONGESTION/COUGH Nursing Triage Note: SUNDAY HAD SX, NOW HAVING HEAD COLD SX. HOME TEST POSITIVE FOR COVID. Source of Information: Patient Exam Limitations: No Limitations History of Present Illness Date Seen by Provider: Nov 05, 2021 Time Seen by Provider: 09:56 Initial Comments This is 71-year-old gentleman presents to the emergency room with URI symptoms of congestion. He took a home COVID test which was positive. He is uncertain if he did the COVID test right and would like that confirmed. He denies any cough, shortness of air, vomiting, diarrhea, or other acute symptoms. He is really not interested in receiving any treatment and comments that he is not really sure why he came. Dr. Villar is his primary care provider. Allergies and Home Medications Allergies Coded Allergies: No Known Drug Allergies (Unverified , 11/05/21) Patient Home Medication List Home Medication List Reviewed: Yes Amlodipine Besylate (Amlodipine Besylate) 5 Mg Tablet, 5 MG PO HS, (Reported) Entered as Reported by: ADÁN BORGES on 11/28/20 1350 Aspirin (Aspirin EC) 81 Mg Tablet.dr, 81 MG PO DAILY, (Reported) Entered as Reported by: ALYCE BOSCH on 11/29/20 09 Cimetidine (Acid Bariatric Physician (CIMETIDINE)) 200 Mg Tablet, 200-400 MG PO BID PRN for INDIGESTION, (Reported) Entered as Reported by: ALYCE BOSCH on 11/29/20 09 Hydrocodone/Acetaminophen (Hydrocodone-Acetamin 7.5-325) 1 Each Tablet, 1 EACH PO Q4H Prescribed by: ANDREW PALMA on 11/30/20 1334 Lisinopril (Lisinopril) 40 Mg Tablet, 40 MG PO DAILY, (Reported) Entered as Reported by: ADÁN BORGES on 11/28/20 1350 Metoprolol Succinate (Metoprolol Succinate) 100 Mg Tab.er.24h, 100 MG PO DAILY, (Reported) Entered as Reported by: ADÁN BORGES on 11/28/20 1350 Ondansetron HCl (Zofran) 4 Mg Tab, 4 MG PO Q4H Prescribed by: ANDREW PALMA on 11/30/20 1334 Pantoprazole Sodium (Protonix) 40 Mg Tablet.dr 40 MG PO DAILY Prescribed by: ANDREW PALMA on 11/30/20 8674 Review of Systems Review of Systems Constitutional: no symptoms reported EENTM: see HPI Respiratory: no symptoms reported Cardiovascular: no symptoms reported Gastrointestinal: no symptoms reported Genitourinary: no symptoms reported Musculoskeletal: no symptoms reported Skin: no symptoms reported Psychiatric/Neurological: No Symptoms Reported Hematologic/Lymphatic: No Symptoms Reported Past Irizqga-Yzxpsj-Nfyvgt Hx Patient Social History Tobacco Use?: No Smoking Status: Former Smoker Smokeless Tobacco Frequency: Former User Substance use?: No Alcohol Use?: Yes Alcohol Frequency: Rarely Pt feels they are or have been: No Past Medical History Surgeries: Yes Appendectomy, Gallbladder Respiratory: No Cardiac: Yes Hypertension Gastrointestinal: No Musculoskeletal: No Endocrine: No HEENT: No Cancer: No Psychosocial: No Integumentary: No Physical Exam Vital Signs Vital Signs - First Documented 11/05/21 09:54 Temp 37.2 Pulse 91 Resp 16 B/P (MAP) 169/103 (125) Pulse Ox 94 O2 Delivery Room Air Capillary Refill : Less Than 3 Seconds Height, Weight, BMI Height: 5'7.00" Weight: 222lbs. 0.0oz. 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2 Pulse 91 83 Resp 16 18 B/P (MAP) 169/103 (125) 152/83 Pulse Ox 94 92 O2 Delivery Room Air Capillary Refill : Less Than 3 Seconds Blood Pressure Mean: 125 Progress Note : Progress Note Positive COVID-19 test was confirmed. Patient was observed to have slight tachypnea and oxygen saturations in the 92 to 94% range at rest. I offered him treatment with Paxlovid or monoclonal antibody therapy. Risks and benefits d iscussed. I expressed my concern about his marginal oxygen saturation. Despite my explanation, patient elected to pass on the offered treatments. Discharge instructions were reviewed with the patient. See instructions for further discussion. Departure Impression Primary Impression: COVID-19 Disposition: 01 HOME, SELF-CARE Condition: Stable Departure-Patient Inst. Referrals: LIANE VILLAR MD (PCP/Family) Primary Care Physician Patient Instructions: Bebtelovimab FDA Fact Sheet, Nirmatrelvir and Ritonavir FDA Fact Sheet, COVID-19 ED Add. Discharge Instructions: Drink plenty of clear liquids to stay well-hydrated. Eat a well-balanced diet and take a multivitamin daily. You may take Tylenol (acetaminophen) up to 1000 mg every 6 hours as needed for pain or fever. You may add ibuprofen up to 400 mg every 6 hours as needed for additional pain or fever relief if needed. Exercise deep breathing often and check your oxygen saturation multiple times a day, especially if you are feeling short of breath. If you have multiple oxygen saturations less than 92% or any oxygen saturation less than 90%, return to the emergency room. Remain active by changing positions often, especially when sitting or lying in bed. Walk around the house or outside if weather is nice to stay mobile. This will improve your breathing and reduce risk for blood clots or other complications. Remain in quarantine for a minimum of 5 full days. Then mask when around others for an additional 5 days after you come out of quarantine. Information about optional therapies for COVID-19 in high risk patients is attached. Please contact your doctor or call back to the emergency room if you decide you want 1 of these treatment options. Return to care if you have any other new or worsening problems or concerns. All discharge instructions reviewed with patient and/or family. Voiced understanding. Copy Copies To 1: LIANE VILLAR MD, JOSHUA T MD Nov 05, 2021 10:48
[2021-11-05 10:55] VITALS: BP 152/83
== END 2021-11-05 10:55 | disposition home or self-care (01) ==
LOC: EDUNIT# 09:45 → ER 09:48
DX: U07.1 COVID-19 (principal); R05.9 Cough, unspecified; R68.89 Other general symptoms and signs; Z87.891 Personal history of nicotine dependence; Z28.310 Unvaccinated for COVID-19
CPT/HCPCS: 87636; 99283

== ENCOUNTER → 2021-11-21 | Outpatient (CLI) | payer MEDICARE, OTHER ==
--- NOTE | 2021-11-21 14:02 | Diagnostic Imaging Report ---
PROCEDURE: MRI lumbar spine. TECHNIQUE: Multiplanar, multisequence MRI of the lumbar spine was performed without contrast. INDICATION: Left-sided sciatica. Correlated with CT abdomen and pelvis 07/25/2021 and with lumbar radiographs 02/08/2016. The lumbar vertebral statures are stable. There are nonedematous mixed sclerotic and fatty Modic type II-type III changes across the degenerated L5-S1 endplate articulation with a stable grade 1 anterolisthesis of L5 on S1 and nonedematous chronic appearing bilateral L5 spondylolysis defects. Lumbar statures are unchanged. No acute bony abnormality. The lower thoracic cord and conus appeared unremarkable. No paravertebral mass, hemorrhage or fluid collection. T12-L1: Mild anterior osteophyte disc material results in no stenosis. L1-L2: There is disc desiccation, bulge and endplate osteophytes with focal right paramedian disc protrusion. There is facet arthrosis, the findings result in a mild to moderate degree of canal stenosis with mild biforaminal narrowing. L2-L3: Disc bulge, endplate osteophytes, mild facet arthrosis and thickened ligamenta flava result in mild to moderate canal stenosis with moderate right and moderate left severities of neural foraminal stenosis. L3-L4: Facet arthrosis, ligamentous thickening, disc desiccation, bulge and endplate osteophytes result in moderate canal stenosis. There is moderate to severe right greater than left foraminal stenoses. L4-L5: Facet arthrosis and disc bulge with endplate osteophytes. There is no substantial canal stenosis. There is however moderate left and severe right neural foraminal narrowing. L5-S1: Marked disc desiccation, bulge endplate osteophytes and bulky facet arthrosis are present. There is only mild to moderate canal stenosis however there are severe degrees of biforaminal narrowing. IMPRESSION: 1. Multifactorial degenerative change throughout the lumbar spine results in multilevel canal greater than foraminal stenoses detailed level by level above. 2. Stable trace grade 1 anterolisthesis L5 on S1 with chronic nonedematous L5 spondylolysis defects and no acute-appearing bony abnormality. Dictated by: Dictated on workstation # [id number]
== END ==
LOC: RAD 12:30
PROVIDERS: ATTEND Family Medicine
DX: M47.817 Spondylosis without myelopathy or radiculopathy, lumbosacral region (principal); M51.37 Other intervertebral disc degeneration, lumbosacral region; M51.27 Other intervertebral disc displacement, lumbosacral region; M48.07 Spinal stenosis, lumbosacral region; M43.17 Spondylolisthesis, lumbosacral region
CPT/HCPCS: 72148

== ENCOUNTER → 2022-12-06 | Outpatient (CLI) | payer MEDICARE, OTHER ==
--- NOTE | 2022-12-06 10:00 | Diagnostic Imaging Report ---
INDICATION: DYSPNEA UNSPECIFIED TYPE COMPARISON: None FINDINGS: Frontal and lateral views of the chest demonstrate normal heart size and pulmonary vascularity. The lungs show minimal left basilar atelectasis, but are otherwise clear. There are no signs of infiltrate, pleural effusions or pneumothoraces. The visualized osseous structures show no acute abnormalities. IMPRESSION: 1. No acute process. No signs of infiltrates, effusions or pneumothoraces. Dictated by: Dictated on workstation # [id number]
== END ==
LOC: RAD 08:56
PROVIDERS: ATTEND Family Medicine
DX: R06.00 Dyspnea, unspecified (principal); Z87.891 Personal history of nicotine dependence
CPT/HCPCS: 71046